=== PATIENT | female | born 1990 | race Caucasian/White ===

== ENCOUNTER 2020-02-08 19:27 | Emergency (ER) | payer SELFPAY ==
[2020-02-08 19:34] VITALS: BP 144/82
[2020-02-08] MEDS ORDERED: KETOROLAC 60 MG/2 ML VIAL IM STA (20:00)
[2020-02-08] MEDS ORDERED: ACETAMINOPHEN 325 MG TABLET PO STA (20:00)
--- NOTE | 2020-02-08 20:03 | ED Physician Documentation ---
History of Present Illness - Stated complaint Stated Complaint: BILAT KNEE PX - Chief complaint Chief Complaint: Ext Problem - History obtained from History obtained from: Patient (30-year-old female comes in today with a chief complaint of bilateral knee pain for approximately 1 month. The patient has recently moved up to the [facility] in the last week from [facility]. She states back in [place] she had several fallsHer landing on her knees. She did not seek any medical attention at that time. She has had no imaging done of her knees. She does not have a PCP up in this area as of yet.) Review of Systems Constitutional: denies: Fever, Chills, Fatigue Musculoskeletal: reports: Joint pain. denies: Back pain, Extremity swelling, Joint swelling PD PAST MEDICAL HISTORY - Past Medical History Past Medical History: No Cardiovascular: None Respiratory: None Neuro: None Endocrine/Autoimmune: None GI: None AUTOMATIC BLOCKER: None : None HEENT: None Psych: None Musculoskeletal: None Derm: None - Past Surgical History Past Surgical History: No - Allergies Allergies/Adverse Reactions: Allergies Allergy/AdvReac Type Severity Reaction Status Date / Time No Known Drug Allergies Allergy Verified 02/08/20 19:31 - Social History Does the pt smoke?: No Smoking Status: Never smoker Does the pt drink ETOH?: Yes Does the pt have substance abuse?: No - Immunizations Immunizations are current?: Yes - POLST Patient has POLST: No PD ED PE NORMAL - General General: Alert and oriented X 3, No acute distress, Well developed/nourished - HEENT HEENT: Atraumatic, PERRL, EOMI - Neck Neck: No adenopathy - Cardiac Cardiac: RRR, No murmur - Respiratory Respiratory: No respiratory distress, Clear bilaterally - Extremities Extremities: No deformity, No tenderness to palpate, Normal ROM s pain, No edema - Neuro Neuro: Alert and oriented X 3 Results - Vitals Vitals: Vital Signs - 24 hr 02/08/20 19:31 Temperature 37.3 C Heart Rate 111 H Respiratory 16 Rate Blood Pressure 144/82 H O2 Saturation 99 Oxygen O2 Source Room air Departure - Departure Disposition: 01 Home, Self Care Clinical Impression: Knee pain, bilateral Qualifiers: Chronicity: chronic Qualified Code(s): M25.561 - Pain in right knee; M25.562 - Pain in left knee; G89.29 - Other chronic pain Condition: Good Instructions: Knee Pain Comments: [place]. With no recent trauma to your knees no imaging was done today, with your primary care physician you can discuss possibilities of having an MRI done of your knees if they seem to think is warranted. In the meantime he can take ibuprofen 600 mg 3 times a day for the next 3 to 5 days starting tomorrow morning, make sure you drink plenty of water while taking this. He can also take Tylenol 325 mg of 500 mg every 4-6 hours for pain control as well. You may apply ice to your knees at night with her sore from being on them all day, this will help reduce any swelling, and/or pain. Follow-up with a primary care physician within the next 2 to 4 weeks
== END 2020-02-08 20:21 | disposition home or self-care (01) ==
LOC: ED 19:27
DX: M25.562 Pain in left knee (principal); M25.561 Pain in right knee; G89.29 Other chronic pain
CPT/HCPCS: 96372; 99283; A9270

== ENCOUNTER 2020-02-10 13:25 | Outpatient (CLI) | payer SELFPAY | END 2020-02-10 13:26 | disposition critical access hospital (66) | LOC: EMS 13:25 | PROVIDERS: ATTEND Surgery | DX: M25.462 Effusion, left knee (principal); M25.461 Effusion, right knee; Z91.81 History of falling | CPT/HCPCS: A0425; A0429 ==

== ENCOUNTER 2020-02-10 13:36 | Emergency (ER) | payer SELFPAY ==
[2020-02-10 13:49] VITALS: BP 133/81
--- NOTE | 2020-02-10 14:40 | ED Physician Documentation ---
History of Present Illness - Stated complaint Stated Complaint: BILAT KNEE PAIN - Chief complaint Chief Complaint: Ext Problem - History obtained from History obtained from: Patient (30-year-old female patient comes in today via EMS with a chief complaint of bilateral knee pain. She denies any recent trauma, falls in the last 48 hours since she was seen for the same. Patient is recently moved up to the [facility] within the last 2 weeks from [facility]. She has not established with a primary care physician yet. She states that back in [place] she had several falls landing on her knees. She did not seek any medical attention at that time, and is just now wanting to get MRI's done. She states she knows "nothing is broke in my femur, tibia, fibula" but states she "knows something is wrong on the inside of my knees".) Review of Systems Constitutional: denies: Fever, Chills, Myalgias, Fatigue Ears: reports: Reviewed and negative Nose: reports: Reviewed and negative Throat: reports: Reviewed and negative Cardiac: reports: Reviewed and negative Respiratory: reports: Reviewed and negative GI: reports: Reviewed and negative : reports: Reviewed and negative Skin: denies: Rash, Lesions, Abrasion (s), Laceration (s) Musculoskeletal: reports: Joint pain (bilateral knee.). 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 : None HEENT: None Psych: None Musculoskeletal: None Derm: None - Past Surgical History Past Surgical History: No - Allergies Allergies/Adverse Reactions: Allergies Allergy/AdvReac Type Severity Reaction Status Date / Time No Known Drug Allergies Allergy Verified 02/10/20 13:49 - Social History Does the pt smoke?: No Smoking Status: Never smoker Does the pt drink ETOH?: Yes Does the pt have substance abuse?: No - Immunizations Immunizations are current?: Yes - POLST Patient has POLST: No PD ED PE NORMAL - General General: No acute distress, Well developed/nourished - HEENT HEENT: Atraumatic, PERRL, EOMI - Neck Neck: No adenopathy - Cardiac Cardiac: RRR, No murmur - Respiratory Respiratory: No respiratory distress, Clear bilaterally - Abdomen Abdomen: Normal bowel sounds, Soft, Non tender - Derm Derm: Normal color, Warm and dry, No rash - Extremities Extremities: No deformity, No tenderness to palpate, Normal ROM s pain, No edema - Neuro Neuro: Alert and oriented X 3 PD ED PE EXPANDED - Extremities Extremities: Other (bilateral knee's w/ normal drawer sign w/o laxity, MCL & LCL w/o TTP or laxity. ) Results - Vitals Vitals: Vital Signs - 24 hr 02/10/20 13:42 Temperature 36.6 C Heart Rate 88 Respiratory 16 Rate Blood Pressure 133/81 H O2 Saturation 100 Oxygen O2 Source Room air - Labs Labs: Laboratory Tests 02/10/20 14:51 Ur Specific [place] 1.010 Urine HCG, Qual NEGATIVE PD MEDICAL DECISION MAKING - ED course Complexity details: d/w patient (Patient has had no recent trauma to warrant imaging of her knees today. Reiterated with the patient that she needs to e stablish with a PCP in the area to be evaluated to get an MRI of her knees. Patient ambulating without difficulty.) Departure - Departure Disposition: 01 Home, Self Care Clinical Impression: Knee pain, bilateral Qualifiers: Chronicity: chronic Qualified Code(s): M25.561 - Pain in right knee Condition: Good Instructions: Knee Pain Comments: Again, you need to establish with a PCP in the local area to have further evaluation of her knees. It will be up to them to decide whether to get an MRI of your knees or. With no recent trauma to her knees again today there is no justification for getting imaging done today. Continue to use ibuprofen 600 mg 3 times a day for pain control. He can also take Tylenol 325 to 500 mg every 4- 6 hours for pain control as well. He did take these as pill form of swallowed whole, do not smoke them, do not cut them off and snort them, do not inject them in your arms. Take as directed on the bottle. You can also apply ice to your knees at night if they are sore from being on them all day. Follow-up with your primary care physician in the next 3 to 4 weeks. Discharge Date/Time: 02/10/20 15:13
[2020-02-10] MEDS ORDERED: KETOROLAC 60 MG/2 ML VIAL IM STA (14:49)
[2020-02-10 15:10] LABS: HCG UR QUAL NEGATIVE
== END 2020-02-10 15:13 | disposition home or self-care (01) ==
LOC: EDUNIT# → ED 13:36
DX: M25.562 Pain in left knee (principal); M25.561 Pain in right knee
CPT/HCPCS: 81025; 96372; 99283

== ENCOUNTER 2020-02-11 21:06 | Emergency (ER) | payer SELFPAY ==
[2020-02-11 21:31] VITALS: BP 147/90
--- NOTE | 2020-02-11 21:37 | ED Physician Documentation ---
History of Present Illness - Stated complaint Stated Complaint: LINDSEY PX - Additonal information Additional information: This [place] 30-year-old female who recently moved here from [place], with a history of reported autism, unspecified mood disorder, who presents with persistent bila teral knee pain. Patient states that she fell a few weeks ago impacted her knees, and since that time she is had some pain of her bilateral knees. She was seen here twice over recent days had a very reassuring exam and was discharged with supportive care. She states that the Tylenol she was given has not been effective, and she returns today in hopes of getting MRIs of her knees as well as a prescription for a stronger medication. She is able to bend her knees states that hyperflexion causes pain. She wonders if she has a meniscal injury. She also has some discomfort of her right lindsey after running yesterday, which she wonders if it may be shinsplints. She denies weakness or numbness or tingling. No fever, no open wounds in the leg. 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 : None HEENT: None Psych: None Musculoskeletal: None Derm: None - Past Surgical History Past Surgical History: No - Present Medications Home Medications: Ambulatory Orders Medication Instructions Recorded Confirmed methocarbamoL [Methocarbamol] 500 mg PO TID PRN #7 tablet 02/11/20 - Allergies Allergies/Adverse Reactions: Allergies Allergy/AdvReac Type Severity Reaction Status Date / Time No Known Drug Allergies Allergy Verified 02/10/20 13:49 - Social History Does the pt smoke?: No Smoking Status: Never smoker Does the pt drink ETOH?: Yes Does the pt have substance abuse?: No - Immunizations Immunizations are current?: Yes - POLST Patient has POLST: No PD ED PE NORMAL - Vitals Vital signs reviewed: Yes - General General: Alert and oriented X 3, No acute distress - HEENT HEENT: PERRL - Neck Neck: Supple, no meningeal sign - Cardiac Cardiac: RRR - Respiratory Respiratory: No respiratory distress - Abdomen Abdomen: Normal bowel sounds, Soft, Non tender - Derm Derm: Warm and dry - Extremities Extremities: Other (Small 1 cm diameter area of bruising in the inferior aspect of both patella. This is mildly tender to palpation. Patient is able to actively range her knee without discomfort, she has no laxity with anterior and posterior drawer testing, no laxity with varus and valgus stress testing. The lower legs appear atraumatic, no bony tenderness of the tibia, fibula, or bilateral feet. Distal pulses are strong, capillary refill is brisk, ankle dorsiflexion and plantarflexion are 5 out of 5, sensation intact light touch over the lower extremities) - Neuro Neuro: Alert and oriented X 3 - Psych Psych: Normal mood, Normal affect Results - Vitals Vitals: Vital Signs - 24 hr 02/11/20 21:27 Temperature 36.5 C Heart Rate 92 Respiratory 18 Rate Blood Pressure 147/90 H O2 Saturation 97 Oxygen O2 Source Room air - Rads (name of study) XR knees bilaterally Radiology: Other (No acute osseous abnormality) PD MEDICAL DECISION MAKING - ED course Complexity details: considered differential (Strain, sprain, contusion, fracture, Ligamentous injury) ED course: Patient presents the ED with ongoing knee pain. Her knees and legs have actually very benign appearing exams, she has excellent range of motion bilaterally, she is neurovascular intact, and I do not have a clinically high suspicion for fracture. She also appears to have ligaments that are intact on stress testing. Given this is now her third visit to the emergency department in the last week, I did obtain imaging which was unremarkable. She is able to walk without issue, I do not feel that she needs bracing or aggressive treatment at this time. She does appear somewhat anxious, she has a history of an unspecified mood disorder and I have a high suspicion this is in part contributing to her repeated presentations to the emergency department, along with the fact that she is not been able to establish with a primary care provider. I discussed with her that I would like her to continue trying to establish with a primary care provider, and to make an appointment with [facility], which she agrees to do. She has an odd affect, but she does not appear gravely disabled or psychotic at this time. I discussed ibuprofen, she states she has a history of stomach ulcers from NSAIDs, and cannot take them. After discussing the risks of other medications, we decided to trial a few days of methocarbamol, prescribed her a low dose and only 7 tablets, As I feel that she would benefit most from rest and ice, and I worry about her being on any potentially sedating medication. I certainly do want avoid any addicting medication given she has a history of self-reported drug abuse in the past. Patient agrees with this plan and was discharged home in good condition Departure - Departure Disposition: Home, Self Care Clinical Impression: Leg pain, bilateral Condition: Good Follow-Up: [facility] [Provider Group] Prescriptions: methocarbamoL [Methocarbamol] 500 mg PO TID PRN #7 tablet PRN Reason: Pain Comments: You were seen today for leg pain. Your x-rays are reassuring. Please rest and ice your legs. If Tylenol is not sufficient in controlling your pain, you may try the methocarbamol, use this only if needed, it can be slightly sedating, do not combine with alcohol or other sedating medications. Please establish with [facility] and with a primary care provider soon as possible. If you are developing fever, difficulty walking, or other concerning symptoms, return to the emergency department. Otherwise please follow-up with a primary care provider, we are not able to obtain MRIs routinely of knees in the emergency department
--- NOTE | 2020-02-11 22:39 | XRAY Report ---
Reason: Bilateral knee pain after fall Procedure Date: 02/11/2020 Accession Number: [id number] / [id number] Procedure: XR - Knee 3 View BILAT CPT Code: Final Report FULL RESULT: EXAMS: 1. Right Knee Radiography 2. Left Knee Radiography EXAM DATE:02/11/2020 10:08 PM. CLINICAL HISTORY:Bilateral knee pain after fall. COMPARISON: None. TECHNIQUE: 3 views each. FINDINGS: Right Knee: Bones: Normal. No fractures or bone lesions. Joints: Normal. No effusion. No subluxations. Soft Tissues: Normal. No soft tissue swelling. Left Knee: Bones: Normal. No fractures or bone lesions. Joints: Normal. No effusion. No subluxations. Soft Tissues: Normal. No soft tissue swelling. IMPRESSION: No acute bony abnormality. [facility]
== END 2020-02-11 23:13 | disposition home or self-care (01) ==
LOC: ED 21:06
DX: M25.562 Pain in left knee (principal); M25.561 Pain in right knee; F84.0 Autistic disorder; F39 Unspecified mood [affective] disorder
CPT/HCPCS: 99283; 99284

== ENCOUNTER 2020-02-11 23:32 | Emergency (ER) | payer SELFPAY ==
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
[2020-02-12] MEDS ORDERED: OLANZapine ODT 5 MG TABLET TL ONE ×2 (00:19→11:54)
[2020-02-12 00:24] LABS: BASOPHILS % (AUTO) 0.4 %; EOSINOPHILS # (AUTO) 0.1 10^3/uL (0.0-0.7); EOSINOPHILS % (AUTO) 1.5 %; HGB - HEMOGLOBIN 12.2 g/dL (12.0-16.0); LYMPHOCYTES # (AUTO) 1.5 10^3/uL (1.5-3.5); LYMPHOCYTES % (AUTO) 20.2 %; MEAN CORPUSCULAR HGB CONC 33.2 g/dL (32.0-36.0); MEAN CORPUSCULAR VOLUME 90.4 fL (81.0-99.0); MEAN PLATELET VOLUME 9.6 fL (7.9-10.8); MONOCYTES # (AUTO) 0.6 10^3/uL (0.0-1.0); MONOCYTES % (AUTO) 7.8 %; NEUTROPHILS # (AUTO) 5.2 10^3/uL (1.5-6.6); NEUTROPHILS % (AUTO) 69.7 %; PLT - PLATELET COUNT 249 10^3/uL (130-450); RED BLOOD COUNT 4.07 10^6/uL (4.20-5.40); RED CELL DISTRIBUTION WIDTH 13.2 % (12.0-15.0); WHITE BLOOD COUNT 7.4 x10^3/uL (4.8-10.8)
[2020-02-12 00:40] LABS: ACETAMINOPHEN < 10 ug/mL (10-30); ALBUMIN 3.9 g/dL (3.2-5.5); ALBUMIN/GLOBULIN RATIO 1.2 (1.0-2.2); ALKALINE PHOSPHATASE 54 IU/L (42-121); ALT ALANINE AMINOTRANSFERASE 19 IU/L (10-60); AST ASPARTATE AMINOTRANSFERASE 24 IU/L (10-42); BILIRUBIN,TOTAL 0.4 mg/dL (0.2-1.0); BUN - BLOOD UREA NITROGEN 10 mg/dL (6-20); CALCIUM 8.6 mg/dL (8.5-10.3); CARBON DIOXIDE - CO2 26 mmol/L (21-32); CHLORIDE 103 mmol/L (101-111); CREATININE 0.7 mg/dL (0.4-1.0); GLUCOSE 74 mg/dL (70-100); LIPASE 45 U/L (22-51); SALICYLATE < 6.0 mg/dL; SODIUM 135 mmol/L (135-145); TOTAL PROTEIN 7.2 g/dL (6.7-8.2)
[2020-02-12 01:55] LABS: BILIRUBIN,URINE NEGATIVE (NEGATIVE); CLARITY,URINE CLEAR (CLEAR); GLUCOSE, URINE (UA) NEGATIVE (NEGATIVE); HCG UR QUAL NEGATIVE; KETONES,URINE (UA) NEGATIVE (NEGATIVE); LEUKOCYTE ESTERASE, URINE NEGATIVE (NEGATIVE); NITRITE,URINE NEGATIVE (NEGATIVE); OCCULT BLOOD,URINE NEGATIVE (NEGATIVE); PH,URINE 6.5 PH (5.0-7.5); PROTEIN,URINE NEGATIVE (NEGATIVE); UROBILINOGEN,URINE 0.2 (NORMAL) E.U./dL (NORMAL)
[2020-02-12 01:56] LABS: MUDS CUTOFF CONCENTRATIONS CUTOFF CONC BELOW:
[2020-02-12 01:57] LABS: AMPHETAMINE SCREEN,URINE POSITIVE (NEGATIVE); BENZODIAZEPINES SCREEN, URINE NEGATIVE (NEGATIVE); COCAINE SCREEN URINE NEGATIVE (NEGATIVE); METHADONE SCREEN, URINE NEGATIVE (NEGATIVE); METHAMPHETAMINES SCREEN, URINE NEGATIVE (NEGATIVE); OPIATE SCREEN, URINE NEGATIVE (NEGATIVE); OXYCODONE SCREEN, URINE NEGATIVE (NEGATIVE); PROPOXYPHENE SCREEN, URINE NEGATIVE (NEGATIVE); TRICYCLIC ANTIDEPRESSANT,URINE NEGATIVE (NEGATIVE)
[2020-02-12] MEDS ORDERED: LORazepam 1 MG TABLET PO STA ×3 (02:04→20:59)
[2020-02-12] MEDS ORDERED: KETOROLAC 30 MG/ML VIAL IM STA (06:46)
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
[2020-02-12] MEDS ORDERED: ACETAMINOPHEN 500 MG TABLET PO STA ×2 (11:19→16:44)
[2020-02-12 18:36] VITALS: BP 127/64
[2020-02-12] MEDS ORDERED: IBUPROFEN 600 MG TABLET PO STA (20:20)
== END 2020-02-12 21:50 ==
LOC: ED 23:32
DX: F30.2 Manic episode, severe with psychotic symptoms (principal); F84.0 Autistic disorder
CPT/HCPCS: 36415; 80320; 80329; 81003; 81025; 83690; 93005; 96372; 99284; 99285; A9270; J8499; 80053; 80306; 80307; 81001; 84443; 85025; 87086

== ENCOUNTER 2020-02-12 21:56 | Outpatient (CLI) | payer MEDICAID | END 2020-02-12 21:57 | LOC: EMS 21:56 | PROVIDERS: ATTEND Surgery | DX: F29 Unspecified psychosis not due to a substance or known physiological condition (principal) | CPT/HCPCS: A0425; A0428 ==

== ENCOUNTER 2020-02-22 22:15 | Outpatient (CLI) | payer MEDICAID | END 2020-02-22 22:16 | disposition critical access hospital (66) | LOC: EMS 22:15 | PROVIDERS: ATTEND Surgery | DX: R10.11 Right upper quadrant pain (principal); V18.0XXA Pedal cycle driver injured in noncollision transport accident in nontraffic accident, initial encounter; Y93.55 Activity, bike riding | CPT/HCPCS: A0425; A0429; A0999 ==

== ENCOUNTER 2020-02-22 22:28 | Emergency (ER) | payer MEDICAID ==
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
[2020-02-22 22:38] VITALS: BP 127/79
[2020-02-22] MEDS ORDERED: ACETAMINOPHEN 325 MG TABLET PO STA (22:50)
== END 2020-02-22 23:05 | disposition home or self-care (01) ==
LOC: EDUNIT# → ED 22:28
DX: Z04.1 Encounter for examination and observation following transport accident (principal)
CPT/HCPCS: 36415; 99282; 99283; A9270

== ENCOUNTER 2020-02-23 05:53 | Emergency (ER) | payer OTHER, MEDICAID ==
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
[2020-02-23 06:05] VITALS: BP 131/85
== END 2020-02-23 06:02 | disposition home or self-care (01) ==
LOC: ED 05:53
DX: Z02.89 Encounter for other administrative examinations (principal)
CPT/HCPCS: 99282

== ENCOUNTER 2020-02-28 14:36 | Outpatient (CLI) | payer OTHER ==
--- NOTE | 2020-02-29 13:00 | XRAY Report ---
Reason: UNSPECIFIED INJURY TO RIGHT ARM Procedure Date: 02/28/2020 Accession Number: [id number] / [id number] Procedure: XR - Forearm RT CPT Code: Final Report FULL RESULT: EXAM: RIGHT FOREARM RADIOGRAPHY EXAM DATE: 02/28/2020 02:49 PM. CLINICAL HISTORY: UNSPECIFIED INJURY TO RIGHT ARM. COMPARISON: None. TECHNIQUE: 2 views. FINDINGS: Bones: Normal. No fractures or bone lesions. Joints: Normal. No effusions or subluxations in the visualized wrist or elbow joints. Soft Tissues: Normal. No soft tissue swelling. IMPRESSION: 1. No osseous abnormalities. RADIA
== END 2020-02-28 14:37 | disposition home or self-care (01) ==
LOC: DI 14:36
PROVIDERS: ATTEND Registered Nurse
DX: S59.911A Unspecified injury of right forearm, initial encounter (principal)

== ENCOUNTER 2020-05-01 20:20 | Emergency (ER) | payer MEDICAID ==
--- NOTE | 2020-05-01 20:58 | XRAY Report ---
PROCEDURE: Ankle 3 View RT INDICATIONS: Trauma TECHNIQUE: 3 views of the ankle were acquired. COMPARISON: None FINDINGS: Bones: No fractures or dislocations. Ankle mortise is normally aligned. No suspicious bony lesions . Soft tissues: No tibiotalar joint effusion. Achilles tendon appears normal. IMPRESSION: No trauma found. Reviewed by: Darnell Rutledge MD on 05/01/2020 8:56 PM PDT Approved by: Darnell Rutledge MD on 05/01/2020 8:56 PM PDT Station ID: [id number]
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
[2020-05-01 21:34] VITALS: BP 138/72
== END 2020-05-01 21:33 | disposition home or self-care (01) ==
LOC: ED 20:20
DX: S90.521A Blister (nonthermal), right ankle, initial encounter (principal); S90.511A Abrasion, right ankle, initial encounter; X50.9XXA Other and unspecified overexertion or strenuous movements or postures, initial encounter; Y92.410 Unspecified street and highway as the place of occurrence of the external cause; Z59.0 Homelessness
CPT/HCPCS: 99283; 99284

== ENCOUNTER 2020-07-18 16:32 | Emergency (ER) | payer MEDICAID ==
[2020-07-18 18:42] LABS: MUDS CUTOFF CONCENTRATIONS CUTOFF CONC BELOW:
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
[2020-07-18 18:53] VITALS: BP 138/85
[2020-07-18 18:59] LABS: AMPHETAMINE SCREEN,URINE POSITIVE (NEGATIVE); BENZODIAZEPINES SCREEN, URINE NEGATIVE (NEGATIVE); COCAINE SCREEN URINE NEGATIVE (NEGATIVE); METHADONE SCREEN, URINE NEGATIVE (NEGATIVE); METHAMPHETAMINES SCREEN, URINE NEGATIVE (NEGATIVE); OPIATE SCREEN, URINE NEGATIVE (NEGATIVE); OXYCODONE SCREEN, URINE NEGATIVE (NEGATIVE); PROPOXYPHENE SCREEN, URINE NEGATIVE (NEGATIVE); TRICYCLIC ANTIDEPRESSANT,URINE NEGATIVE (NEGATIVE)
== END 2020-07-18 18:59 | disposition home or self-care (01) ==
LOC: ED 16:32
DX: R52 Pain, unspecified (principal); V03.90XA Pedestrian on foot injured in collision with car, pick-up truck or van, unspecified whether traffic or nontraffic accident, initial encounter; R46.2 Strange and inexplicable behavior; R45.4 Irritability and anger
CPT/HCPCS: 80306; 99281; 99283

== ENCOUNTER 2020-10-13 17:18 | Outpatient (CLI) | payer MEDICAID | END 2020-10-13 17:19 | disposition critical access hospital (66) | LOC: EMS 17:18 | PROVIDERS: ATTEND Surgery | DX: R46.89 Other symptoms and signs involving appearance and behavior (principal) | CPT/HCPCS: A0425; A0427; A0999 ==

== ENCOUNTER 2020-10-13 17:35 | Emergency (ER) | payer MEDICAID ==
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
[2020-10-13 18:12] LABS: BASOPHILS % (AUTO) 0.4 %; HGB - HEMOGLOBIN 10.9 g/dL (12.0-16.0); LYMPHOCYTES # (AUTO) 0.9 10^3/uL (1.5-3.5); LYMPHOCYTES % (AUTO) 9.1 %; MEAN CORPUSCULAR HEMOGLOBIN 30.3 pg (27.0-31.0); MEAN CORPUSCULAR HGB CONC 33.4 g/dL (32.0-36.0); MEAN CORPUSCULAR VOLUME 90.6 fL (81.0-99.0); MEAN PLATELET VOLUME 10.9 fL (7.9-10.8); MONOCYTES # (AUTO) 0.7 10^3/uL (0.0-1.0); MONOCYTES % (AUTO) 7.1 %; NEUTROPHILS # (AUTO) 7.7 10^3/uL (1.5-6.6); NEUTROPHILS % (AUTO) 83.1 %; PLT - PLATELET COUNT 187 10^3/uL (130-450); RED CELL DISTRIBUTION WIDTH 12.6 % (12.0-15.0); WHITE BLOOD COUNT 9.3 x10^3/uL (4.8-10.8)
[2020-10-13 18:36] LABS: ACETAMINOPHEN < 10 ug/mL (10-30); ALBUMIN 4.3 g/dL (3.2-5.5); ALBUMIN/GLOBULIN RATIO 1.4 (1.0-2.2); ALKALINE PHOSPHATASE 46 IU/L (42-121); ALT ALANINE AMINOTRANSFERASE 42 IU/L (10-60); AST ASPARTATE AMINOTRANSFERASE 64 IU/L (10-42); BILIRUBIN,TOTAL 1.6 mg/dL (0.2-1.0); BUN - BLOOD UREA NITROGEN 21 mg/dL (6-20); CALCIUM 8.8 mg/dL (8.5-10.3); CARBON DIOXIDE - CO2 18 mmol/L (21-32); CHLORIDE 96 mmol/L (101-111); GLUCOSE 80 mg/dL (70-100); LIPASE 17 U/L (22-51); SALICYLATE < 6.0 mg/dL; SODIUM 132 mmol/L (135-145); TOTAL PROTEIN 7.3 g/dL (6.7-8.2)
[2020-10-13 19:19] LABS: MUDS CUTOFF CONCENTRATIONS CUTOFF CONC BELOW:
[2020-10-13 19:24] LABS: BILIRUBIN,URINE NEGATIVE (NEGATIVE); GLUCOSE, URINE (UA) NEGATIVE (NEGATIVE); KETONES,URINE (UA) 40 mg/dL (NEGATIVE); LEUKOCYTE ESTERASE, URINE NEGATIVE (NEGATIVE); NITRITE,URINE NEGATIVE (NEGATIVE); OCCULT BLOOD,URINE NEGATIVE (NEGATIVE); PH,URINE 5.5 PH (5.0-7.5); PROTEIN,URINE NEGATIVE (NEGATIVE); UROBILINOGEN,URINE 0.2 (NORMAL) E.U./dL (NORMAL)
[2020-10-13 19:27] LABS: CLARITY,URINE CLEAR (CLEAR); HCG UR QUAL NEGATIVE
[2020-10-13 19:32] LABS: C. PNEUMONIAE- RESP PCR PANEL NOT DETECTED
[2020-10-13 19:38] LABS: AMPHETAMINE SCREEN,URINE POSITIVE (NEGATIVE); BENZODIAZEPINES SCREEN, URINE NEGATIVE (NEGATIVE); COCAINE SCREEN URINE NEGATIVE (NEGATIVE); METHADONE SCREEN, URINE NEGATIVE (NEGATIVE); METHAMPHETAMINES SCREEN, URINE POSITIVE (NEGATIVE); OPIATE SCREEN, URINE POSITIVE (NEGATIVE); OXYCODONE SCREEN, URINE NEGATIVE (NEGATIVE); PROPOXYPHENE SCREEN, URINE NEGATIVE (NEGATIVE); TRICYCLIC ANTIDEPRESSANT,URINE NEGATIVE (NEGATIVE)
[2020-10-13] MEDS ORDERED: LACTATED RINGERS 2,000 ML IV STA (19:47)
--- NOTE | 2020-10-13 20:04 | CT Report ---
PROCEDURE: HEAD WO INDICATIONS: altered mental status TECHNIQUE: Noncontrast 4.5 mm thick angled axial sections acquired from the foramen magnum to the vertex. For r adiation dose reduction, the following was used: automated exposure control, adjustment of mA and/or kV according to patient size. COMPARISON: None. FINDINGS: Image quality: Excellent. CSF spaces: Basal cisterns are patent. No extra-axial fluid collections. Ventricles are normal in size and shape. Brain: No midline shift. No intracranial masses or hemorrhage. Mcintyre-white matter interface is norm al. Skull and face: Calvarium and visualized facial bones are intact, without suspicious lesions. Sinuses: Visualized sinuses and mastoids are clear. IMPRESSION: No CT evidence of acute intracranial pathology. No skull fracture. Reviewed by: Jevon Wan MD on 10/13/2020 8:02 PM PST Approved by: Jevon Wan MD on 10/13/2020 8:02 PM PST Station ID: [id number]
[2020-10-13] MEDS ORDERED: LORazepam 2 MG/ML VIAL IVP STA (23:17)
[2020-10-14] MEDS ORDERED: OLANZapine 10 MG VIAL IM STA (00:05)
[2020-10-14] MEDS ORDERED: LORazepam 2 MG/ML VIAL IVP STA (00:43)
[2020-10-14 00:45] LABS: CALCIUM 8.9 mg/dL (8.5-10.3); CREATININE 0.9 mg/dL (0.4-1.0)
[2020-10-14] MEDS ORDERED: ACETAMINOPHEN 325 MG TABLET PO STA (14:52)
--- NOTE | 2020-10-14 16:19 | ED Physician Documentation ---
ED Addendum - Addendum Addendum: 10/14/20 16:17 The patient has slept much of the morning. She had been given a generous amount of medication to help sleep and relax last night. At this point she was being able to arouse at times and interact with the social media specialist. She denied any suicidal ideation. The intention at this point was for social work to call her relative to come pick her up and continue sleeping off at home. No abnormalities in vital signs. She had had a normal urine and respiratory viral panel yesterday. She had a mild low-grade fever here but denies any localized symptoms.
--- NOTE | 2020-10-14 16:46 | ED Physician Documentation ---
ED Addendum - Addendum Addendum: 10/14/20 16:46 She sobered up throughout the day, reportedly was seen by the FILENET ARCHITECT and no criteria for usp. Social work saw and arranged for family to come pick her up. Disposition discharged home, condition stable 10/14/20 21:31 Subsequently told family will not be in til the AM to pick her up.
[2020-10-15 04:53] LABS: CALCIUM 8.5 mg/dL (8.5-10.3); CREATININE 0.7 mg/dL (0.4-1.0)
[2020-10-15 10:24] VITALS: BP 134/78
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
== END 2020-10-15 10:25 | disposition home or self-care (01) ==
LOC: EDUNIT# → EDBD → ED 17:35
DX: F15.129 Other stimulant abuse with intoxication, unspecified (principal); M62.82 Rhabdomyolysis; Z78.1 Physical restraint status; R45.6 Violent behavior; Z59.0 Homelessness; Z20.828 Contact with and (suspected) exposure to other viral communicable diseases
CPT/HCPCS: 0202U; 36415; 51701; 70450; 80048; 80053; 80306; 80307; 80320; 80329; 81003; 81025; 82550; 82553; 83690; 84443; 85025; 96361; 96372; 96374; 99284; 99285; A9270; J2060; J7120; 81001; 87086

== ENCOUNTER 2021-06-07 15:01 | Emergency (ER) | payer MEDICAID ==
[2021-06-07 15:35] VITALS: BP 126/75
[2021-06-07 16:15] LABS: BASOPHILS # (AUTO) 0.1 10^3/uL (0.0-0.1); BASOPHILS % (AUTO) 0.5 %; EOSINOPHILS # (AUTO) 0.2 10^3/uL (0.0-0.7); EOSINOPHILS % (AUTO) 1.4 %; HCT - HEMATOCRIT 36.3 % (37.0-47.0); HGB - HEMOGLOBIN 13.4 g/dL (12.0-16.0); LYMPHOCYTES # (AUTO) 2.1 10^3/uL (1.5-3.5); LYMPHOCYTES % (AUTO) 18.2 %; MEAN CORPUSCULAR HEMOGLOBIN 31.9 pg (27.0-31.0); MEAN CORPUSCULAR HGB CONC 36.9 g/dL (32.0-36.0); MEAN CORPUSCULAR VOLUME 86.4 fL (81.0-99.0); MEAN PLATELET VOLUME 10.1 fL (7.9-10.8); MONOCYTES # (AUTO) 1.2 10^3/uL (0.0-1.0); MONOCYTES % (AUTO) 10.1 %; NEUTROPHILS # (AUTO) 8.2 10^3/uL (1.5-6.6); NEUTROPHILS % (AUTO) 69.5 %; PLT - PLATELET COUNT 195 10^3/uL (130-450); RED CELL DISTRIBUTION WIDTH 12.6 % (12.0-15.0); WHITE BLOOD COUNT 11.8 x10^3/uL (4.8-10.8)
[2021-06-07 16:32] LABS: ACETAMINOPHEN < 10 ug/mL (10-30); ALBUMIN 4.9 g/dL (3.2-5.5); ALBUMIN/GLOBULIN RATIO 1.6 (1.0-2.2); ALKALINE PHOSPHATASE 61 IU/L (42-121); ALT ALANINE AMINOTRANSFERASE 13 IU/L (10-60); AST ASPARTATE AMINOTRANSFERASE 24 IU/L (10-42); BILIRUBIN,TOTAL 1.8 mg/dL (0.2-1.0); BUN - BLOOD UREA NITROGEN 19 mg/dL (6-20); CALCIUM 9.1 mg/dL (8.5-10.3); CARBON DIOXIDE - CO2 19 mmol/L (21-32); CHLORIDE 103 mmol/L (101-111); CREATININE 0.9 mg/dL (0.4-1.0); ETOH - ETHANOL < 5.0 mg/dL; GFR - MDRD 73 (>89); GLUCOSE 96 mg/dL (70-100); LIPASE 19 U/L (22-51); POTASSIUM 3.7 mmol/L (3.5-5.0); SALICYLATE < 6.0 mg/dL; SODIUM 133 mmol/L (135-145); TOTAL PROTEIN 7.9 g/dL (6.7-8.2)
== END 2021-06-07 17:13 | disposition left against medical advice (07) ==
LOC: ED 15:01
DX: Z53.21 Procedure and treatment not carried out due to patient leaving prior to being seen by health care provider (principal)
CPT/HCPCS: 36415; 80053; 80307; 80320; 80329; 83690; 84443; 85025

== ENCOUNTER 2021-06-22 18:04 | Outpatient (CLI) | payer MEDICAID | END 2021-06-22 18:05 | disposition critical access hospital (66) | LOC: EMS 18:04 | DX: Z00.8 Encounter for other general examination (principal) | CPT/HCPCS: A0425; A0429; A0999 ==

== ENCOUNTER 2021-06-22 18:23 | Emergency (ER) | payer MEDICAID ==
[2021-06-22] MEDS ORDERED: SODIUM CHLORIDE 0.9% 1,000 ML IV STA (18:27)
--- NOTE | 2021-06-22 18:29 | ED Physician Documentation ---
History of Present Illness - Stated complaint Stated Complaint: MHE - History obtained from History obtained from: Patient, EMS - Additonal information Additional information: 31-year-old woman presents to the emergency department by ambulance for chief complaint of I would like Powerade, a saline drip, and half a sandwich. Reportedly 911 was called by multiple people because she was acting funny. She came from area known for homelessness and methamphetamine abuse although denies this to me. She has no other specific chief complaints. 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 : None HEENT: None Psych: None Musculoskeletal: None Derm: None - Past Surgical History Past Surgical History: No - Present Medications Home Medications: Ambulatory Orders Medication Instructions Recorded Confirmed Home Medications Unobtainable 10/13/20 10/13/20 [HOME MEDICATIONS UNOBTAINABLE] - Allergies Allergies/Adverse Reactions: Allergies Allergy/AdvReac Type Severity Reaction Status Date / Time No Known Drug Allergies Allergy Verified 06/23/21 01:26 - Social History Does the pt smoke?: No Smoking Status: Never smoker Does the pt drink ETOH?: Yes Does the pt have substance abuse?: Yes - Immunizations Immunizations are current?: Yes - POLST Patient has POLST: No PD ED PE NORMAL - Vitals Vital signs reviewed: Yes - General General: Alert and oriented X 3 (She is manic but easily redirectable.) - HEENT HEENT: PERRL, EOMI - Neck Neck: Supple, no meningeal sign, No bony TTP - Cardiac Cardiac: Other (Tachycardic but regular without murmur) - Respiratory Respiratory: No respiratory distress, Clear bilaterally - Abdomen Abdomen: Soft, Non tender - Back Back: No CVA TTP - Derm Derm: Normal color, Warm and dry - Extremities Extremities: No edema, No calf tenderness / cord - Neuro Neuro: Alert and oriented X 3, Normal speech - Psych Psych: Other (Pressured hyperactive speech) Results - Vitals Vitals: Vital Signs - 24 hr 06/22/21 18:22 Temperature 36.4 C L Heart Rate 134 H Respiratory 28 H Rate Blood Pressure 154/128 H O2 Saturation 98 Oxygen O2 Source Room air PD MEDICAL DECISION MAKING - ED course ED course: 31-year-old woman presents by ambulance with odd behavior mostly consistent with methamphetamine use. She is agitated and restless, dancing in the room. Inappropriately showing her crotch. That said she is completely redirectable although has a variety of nonsensical complaints including but not limited to "I am sad because I am no longer a cervical virgin," "you know I am [place] taoist." At times she was agreeable to lab work, but then refused as the lip drupal architect approached. She was given 2 mg of Ativan IM for anxiolysis which did little for her. She refused IV fluids. Care to overnight emergency physician, it may be some time for her to work through her suspected methamphetamine intoxication. Departure - Departure Disposition: 01 Home, Self Care Clinical Impression: Methamphetamine abuse Condition: Stable Instructions: ED Drug Abuse General Discharge Date/Time: 06/23/21 00:01
[2021-06-22] MEDS ORDERED: LORazepam 2 MG/ML VIAL IVP STA (18:48)
[2021-06-22 19:40] VITALS: BP 154/128
[2021-06-22] MEDS ORDERED: LORazepam 2 MG/ML VIAL IM STA (19:40)
--- NOTE | 2021-06-23 00:02 | ED Physician Documentation ---
ED Addendum - Addendum Addendum: 06/23/21 00:00 Patient endorsed to me by Dr. Wiggins at 10:30pm 06/22. She was in no acute distress, intoxicated with methamphetamine but calm and redirectable. Patient just eloped from the emergency department with steady gait in NAD. Impression 1. methamphetamine abuse
== END 2021-06-23 00:01 | disposition home or self-care (01) ==
LOC: EDBD → EDUNIT# → ED 18:23
DX: F15.10 Other stimulant abuse, uncomplicated (principal)
CPT/HCPCS: 96374; 99283; J2060; 80053; 80307; 80320; 80329; 82550; 83690; 84443; 85025

== ENCOUNTER 2021-06-23 01:10 | Emergency (ER) | payer MEDICAID ==
--- NOTE | 2021-06-23 01:27 | ED Physician Documentation ---
History of Present Illness - Stated complaint Stated Complaint: MHE - Chief complaint Chief Complaint: MHE - History obtained from History obtained from: Patient - Additonal information Additional information: 31yF with pmh meth abuse presents a second time tonight after eloping earlier. Patient told CLAIR Santos at triage that it was scary outside so she decided to come back. Patient in NAD in the emergency department, sparse of words. She is compliant with physical exam and shook her head when asked if she had pain anywhere or needs anything. Nodded head when asked if she wanted a blanket and to rest. 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 : None HEENT: None Psych: None Musculoskeletal: None Derm: None - Past Surgical History Past Surgical History: No - Present Medications Home Medications: Ambulatory Orders Medication Instructions Recorded Confirmed Home Medications Unobtainable 10/13/20 10/13/20 [HOME MEDICATIONS UNOBTAINABLE] - Allergies Allergies/Adverse Reactions: Allergies Allergy/AdvReac Type Severity Reaction Status Date / Time No Known Drug Allergies Allergy Verified 06/23/21 01:26 - Social History Does the pt smoke?: No Smoking Status: Never smoker Does the pt drink ETOH?: Yes Does the pt have substance abuse?: Yes - Immunizations Immunizations are current?: Yes - POLST Patient has POLST: No PD ED PE NORMAL - Vitals Vital signs reviewed: Yes - General General: No acute distress, Other (disheveled appearing) - HEENT HEENT: Atraumatic, PERRL, EOMI, Moist mucous membranes - Neck Neck: Supple, no meningeal sign - Cardiac Cardiac: RRR - Respiratory Respiratory: No respiratory distress, Clear bilaterally - Abdomen Abdomen: Non tender, Non distended - Derm Derm: Normal color, Warm and dry - Extremities Extremities: No deformity - Psych Psych: Other (sparse of words. appears to be more calm than earlier ED visit. ) Results - Vitals Vitals: Oxygen O2 Source Room air PD MEDICAL DECISION MAKING - ED course ED course: 31yF with history of meth abuse presents a second time to the emergency department tonight. No complaints at this time. [place] provided and lights turned down. She is resting now. Note that patient was still sleeping in bed at shift change. Endorsed to Dr. Damon at 7am for further care. Departure - Departure Disposition: 01 Home, Self Care Clinical Impression: Methamphetamine abuse Condition: Good Instructions: ED Drug Abuse General Follow-Up: [facility] [Provider Group] Comments: You were seen in the emergency department for methamphetamine abuse. Please seek addiction counseling as soon as possible. Return to the emergency department if you experience any new or worsening symptoms or have any other concerns. Discharge Date/Time: 06/23/21 12:07
[2021-06-23 11:05] VITALS: BP 121/72
== END 2021-06-23 12:07 | disposition home or self-care (01) ==
LOC: ED 01:10
DX: F15.10 Other stimulant abuse, uncomplicated (principal)
CPT/HCPCS: 99281; 99283

== ENCOUNTER 2021-07-03 06:28 | Outpatient (CLI) | payer MEDICAID | END 2021-07-03 06:29 | disposition critical access hospital (66) | LOC: EMS 06:28 | DX: Z04.3 Encounter for examination and observation following other accident (principal); M54.2 Cervicalgia | CPT/HCPCS: A0425; A0429; A0999 ==

== ENCOUNTER 2021-07-03 06:41 | Emergency (ER) | payer MEDICAID ==
[2021-07-03 06:53] VITALS: BP 96/63
--- NOTE | 2021-07-03 07:54 | ED Physician Documentation ---
History of Present Illness - Stated complaint Stated Complaint: NECK PX/GLF - Chief complaint Chief Complaint: MHE - History obtained from History obtained from: Patient - History of Present Illness Timing: Last night Pain level max: 0 Pain level now: 0 - Additonal information Additional information: Patient brought in by EMS after she stated that she had a fall. She is not having any pain. She states she was using heroin and methamphetamine last night. Patient states that she currently does not have any complaints and feels normal. 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 : None HEENT: None Psych: None Musculoskeletal: None Derm: None - Past Surgical History Past Surgical History: No - Present Medications Home Medications: Ambulatory Orders Medication Instructions Recorded Confirmed Home Medications Unobtainable 10/13/20 10/13/20 [HOME MEDICATIONS UNOBTAINABLE] - Allergies Allergies/Adverse Reactions: Allergies Allergy/AdvReac Type Severity Reaction Status Date / Time No Known Drug Allergies Allergy Verified 07/03/21 06:54 - Social History Does the pt smoke?: No Smoking Status: Never smoker Does the pt drink ETOH?: Yes Does the pt have substance abuse?: Yes - Immunizations Immunizations are current?: Yes - POLST Patient has POLST: No PD ED PE NORMAL - Vitals Vital signs reviewed: Yes - General General: Alert and oriented X 3 (Patient knows who she is, where she is and knows the year. She states she has a court appointment this morning at 8 AM that she needs to attend.), No acute distress, Well developed/nourished - HEENT HEENT: Atraumatic, PERRL, Moist mucous membranes, Pharynx benign - Neck Neck: Supple, no meningeal sign, No bony TTP, Other (FROM without pain) - Cardiac Cardiac: RRR - Respiratory Respiratory: No respiratory distress, Clear bilaterally - Abdomen Abdomen: Soft, Non tender, Non distended - Back Back: No spinal TTP - Derm Derm: Warm and dry - Extremities Extremities: No edema, No calf tenderness / cord - Neuro Neuro: Alert and oriented X 3, oil expeller 2-12 intact, No motor deficit, No sensory deficit, Normal speech - Psych Psych: Normal mood, Normal affect Results - Vitals Vitals: Vital Signs - 24 hr 07/03/21 06:48 Temperature 37 C Heart Rate 87 Respiratory 17 Rate Blood Pressure 96/63 O2 Saturation 99 Oxygen O2 Source Room air PD MEDICAL DECISION MAKING - ED course Complexity details: considered differential, d/w patient ED course: Patient currently has no complaints. No pain. Asymptomatic. She is alert and oriented during my exam. Normal neuro exam. Recommend that she stop using heroin and methamphetamines. Patient states that she needs to leave to get to her court appointment this morning. Patient counseled regarding signs and symptoms for which I believe and urgent re-evaluation would be necessary. Patient with good understanding of and agreement to plan and is comfortable going home at this time This document was made in part using voice recognition software. While efforts are made to proofread this document, sound alike and grammatical errors may occur. Departure - Departure Disposition: 01 Home, Self Care Clinical Impression: Heroin abuse, Methamphetamine abuse Condition: Good Instructions: ED Drug Abuse General, ED Narcotic Abuse Follow-Up: your,doctor in 3 days [Other] Comments: Follow up with your doctor for further care. Return if you worsen. Discharge Date/Time: 07/03/21 08:28
== END 2021-07-03 08:28 | disposition home or self-care (01) ==
LOC: EDUNIT# → ED 06:41
DX: F11.10 Opioid abuse, uncomplicated (principal); F15.10 Other stimulant abuse, uncomplicated
CPT/HCPCS: 99282; 99283

== ENCOUNTER 2021-07-07 16:13 | Emergency (ER) | payer OTHER, MEDICAID ==
[2021-07-07 16:24] VITALS: BP 149/91
[2021-07-07 16:44] LABS: BASOPHILS % (AUTO) 0.6 %; EOSINOPHILS # (AUTO) 0.1 10^3/uL (0.0-0.7); EOSINOPHILS % (AUTO) 2.5 %; HCT - HEMATOCRIT 36.8 % (37.0-47.0); HGB - HEMOGLOBIN 12.9 g/dL (12.0-16.0); LYMPHOCYTES # (AUTO) 1.6 10^3/uL (1.5-3.5); LYMPHOCYTES % (AUTO) 30.7 %; MEAN CORPUSCULAR HEMOGLOBIN 31.1 pg (27.0-31.0); MEAN CORPUSCULAR HGB CONC 35.1 g/dL (32.0-36.0); MEAN CORPUSCULAR VOLUME 88.7 fL (81.0-99.0); MEAN PLATELET VOLUME 10.6 fL (7.9-10.8); MONOCYTES # (AUTO) 0.4 10^3/uL (0.0-1.0); MONOCYTES % (AUTO) 8.2 %; NEUTROPHILS # (AUTO) 3.1 10^3/uL (1.5-6.6); NEUTROPHILS % (AUTO) 57.8 %; PLT - PLATELET COUNT 200 10^3/uL (130-450); RED BLOOD COUNT 4.15 10^6/uL (4.20-5.40); RED CELL DISTRIBUTION WIDTH 12.1 % (12.0-15.0); WHITE BLOOD COUNT 5.3 x10^3/uL (4.8-10.8)
[2021-07-07 17:48] LABS: ALBUMIN 4.1 g/dL (3.2-5.5); ALBUMIN/GLOBULIN RATIO 1.4 (1.0-2.2); BILIRUBIN,TOTAL 0.6 mg/dL (0.2-1.0); CALCIUM 9.6 mg/dL (8.5-10.3); CREATININE 0.6 mg/dL (0.4-1.0)
--- NOTE | 2021-07-07 18:03 | ED Physician Documentation ---
History of Present Illness - Stated complaint Stated Complaint: FIT FOR [facility] - Chief complaint Chief Complaint: General - Additonal information Additional information: 31-year-old female is brought in by [place] please officer for fit for confinement. The patient does appear to be under the influence of drugs. She is very tangential in her history. She is very fidgety and has pinpoint pupils. She does endorse a history of substance abuse including methamphetamine and heroin. She is asking for Vyvanse at this time. She is denying any specific complaint or pain. She does appear disheveled and has poor hygiene. She has been seen in this ER previously for concerns of substance abuse. Also admitted with a history of rhabdomyolysis and acute kidney injury in the past. The officer indicates to me that she was picked up at her family's home where she has been having erratic behaviors as well as complaints from neighbors for trespassing. Review of Systems Unable to obtain: Intoxicated PD PAST MEDICAL HISTORY - Past Medical History Past Medical History: Yes Cardiovascular: None Respiratory: None Neuro: None Endocrine/Autoimmune: None GI: None TACTICAL INTELLIGENCE OFFICER: None : None HEENT: None Psych: None Musculoskeletal: None Derm: None - Past Surgical History Past Surgical History: No - Present Medications Home Medications: Ambulatory Orders Medication Instructions Recorded Confirmed Home Medications Unobtainable 10/13/20 07/07/21 [HOME MEDICATIONS UNOBTAINABLE] - Allergies Allergies/Adverse Reactions: Allergies Allergy/AdvReac Type Severity Reaction Status Date / Time No Known Drug Allergies Allergy Verified 07/07/21 16:19 - Social History Does the pt smoke?: Yes Smoking Status: Current every day smoker Does the pt drink ETOH?: Yes Does the pt have substance abuse?: Yes Substance Use and Type: Marijuana, Meth, Heroin - Immunizations Immunizations are current?: Yes - POLST Patient has POLST: No PD ED PE EXPANDED - General General: Alert, Disheveled, poorly kept, Other (Fidgety) - HEENT HEENT: Atraumatic, Other (Pinpoint pupils) - Cardiac Cardiac: Regular Rate, Radial strong equal, Pedal strong equal, Cap refill < 2 sec - Respiratory Respiratory: Clear to ausultation jeremi. No: Distress, Labored - Abdomen Abdomen: Normal Bowel sounds. No: Tender to palpation - Derm Derm: Normal color, Warm and dry, Abrasion (s) (Multiple superficial abrasions noted on the thighs, knees as well as forearms.) - Neuro Neuro: Alert and Oriented X 3, CNII-XII intact - GCS Eye Opening: Spontaneous Motor: Obeys Commands Verbal: Oriented Total: 15 Results - Vitals Vitals: Vital Signs - 24 hr 07/07/21 16:19 Temperature 37.4 C Heart Rate 106 H Respiratory 18 Rate Blood Pressure 149/91 H O2 Saturation 98 Oxygen O2 Source Room air - Labs Labs: Laboratory Tests 07/07/21 07/07/21 16:39 16:39 WBC 5.3 RBC 4.15 L Hgb 12.9 Hct 36.8 L MCV 88.7 MCH 31.1 H MCHC 35.1 RDW 12.1 Plt Count 200 MPV 10.6 Neut # (Auto) 3.1 Lymph # (Auto) 1.6 [facility] # (Auto) 0.4 Eos # (Auto) 0.1 Baso # (Auto) 0.0 Absolute Nucleated RBC 0.00 Nucleated RBC % 0.0 Sodium 136 Potassium 4.0 Chloride 98 L Carbon Dioxide 27 Anion Gap 11.0 BUN 10 Creatinine 0.6 Estimated GFR (MDRD) 116 Glucose 128 H Calcium 9.6 Total Bilirubin 0.6 AST 37 ALT 24 Alkaline Phosphatase 46 Total Creatine Kinase 368 H Total Protein 7.0 Albumin 4.1 Globulin 2.9 Albumin/Globulin Ratio 1.4 Lipase 24 PD MEDICAL DECISION MAKING - ED course Complexity details: reviewed results, considered differential ED course: 31-year-old female was brought into the emergency department for clearance to enter long-term. She does appear to be under the influence of narcotics. She does have pinpoint pupils and is quite fidgety. Does have a history of kidney injury as well as rhabdomyolysis likely secondary to meth use. Given this history I did proceed to do screening CBC as well as electrolytes do not show any acute worrisome abnormalities. Her vital signs are appropriate given circumstances. She is medically cleared to return to long-term Departure - Departure Disposition: 01 Home, Self Care Clinical Impression: Substance abuse, Medical clearance for incarceration Condition: Stable Record reviewed to determine appropriate education?: Yes
== END 2021-07-07 18:07 | disposition home or self-care (01) ==
LOC: ED 16:13
DX: Z02.89 Encounter for other administrative examinations (principal); F19.10 Other psychoactive substance abuse, uncomplicated; F17.200 Nicotine dependence, unspecified, uncomplicated
CPT/HCPCS: 36415; 80053; 82550; 83690; 85025; 99281; 99283